=== PATIENT | female | born 1995 | race African-American/Black ===

== ENCOUNTER 2021-12-18 22:11 | Emergency (ER) | payer OTHER, SELFPAY ==
[2021-12-18] MEDS ORDERED: HYDROcodone/Acetaminophen 5/325 mg Tablet ONE (22:42)
== END 2021-12-18 23:17 | disposition home or self-care (01) ==
LOC: CSHERS 22:11
DX: O9A.212 Injury, poisoning and certain other consequences of external causes complicating pregnancy, second trimester (principal); S02.5XXA Fracture of tooth (traumatic), initial encounter for closed fracture; Z3A.21 21 weeks gestation of pregnancy; X58.XXXA Exposure to other specified factors, initial encounter
CPT/HCPCS: 99283